=== PATIENT | male | born 1960 | race Caucasian/White ===

== ENCOUNTER → 2025-03-07 14:39 | Outpatient (CLI) | payer OTHER, SELFPAY ==
--- NOTE | 2025-03-07 14:47 | DI.NM.S_ITS ---
PROCEDURE: NM EXERCISE TREADMILL NON NUC COMPARISON: None. INDICATIONS: coronary artery disease FINDINGS: Patient exercised per the standard [facility] protocol. Total exercise time was 4 minutes and 3 seconds. Test was terminated secondary to fatigue. Max heart rate obtained is 176 bpm which is 112% of maximal heart rate. Maximum blood pressure was 202/[place] [address]. L[place]ET[place] +45%. 7.0 METS. No ischemic changes noted. Occasional PVCs with frequent PACs noted during the stress phase with resolution during recovery. No chest pains voiced. Normal heart rate with hypertensive response to exercise. IMPRESSION: 1. Negative exercise treadmill stress test for ischemia. 2. Below average exercise tolerance. 3. Hypertensive response to exercise. Dictated by: Cristóbal Marcos M.D. on 03/07/2025 at 16:54 Approved by: Cristóbal Marcos M.D. on 03/07/2025 at 16:55
== END ==
PROVIDERS: Family Provider Family Medicine; PCP Physician Assistant Medical; Referring Provider Internal Medicine Cardiovascular Disease; Visit Provider Internal Medicine Cardiovascular Disease
DX: I25.10 Atherosclerotic heart disease of native coronary artery without angina pectoris (principal); R94.31 Abnormal electrocardiogram [ECG] [EKG]
CPT/HCPCS: 93017